=== PATIENT | female | born 1975 | race Caucasian/White ===

== ENCOUNTER 2016-08-25 06:11 | Emergency (ER) | payer BC ==
[~2016-08-25] VITALS: Ht 165.1 cm; Wt 114.3 kg
[2016-08-25 06:24] VITALS: BP 122/73
[2016-08-25] MEDS ORDERED: ABIL1TAB5 PO (06:29)
[2016-08-25] MEDS ORDERED: LEXA1TAB2 PO (06:29)
[2016-08-25] MEDS ORDERED: LISI10TA4 PO (06:29)
[2016-08-25] MEDS ORDERED: OMEP40CA2 PO (06:29)
[2016-08-25] MEDS ORDERED: PANTOPRAZOLE 40MG INJ (PROTONIX) (C9113) IV ONE (07:00)
[2016-08-25] MEDS ORDERED: ONDANSETRON 4MG/2ML VIAL (J2405) IV ONE (07:00)
[2016-08-25] MEDS ORDERED: NS 1,000 ML IV ONE (07:00)
[2016-08-25 07:40] LABS: BASO # 0.1 K/mm3 (0.0-0.2); BASO % 0.8 % (0.0-1.0); EOS # 0.6 K/mm3 (0.0-0.50); EOS % 4.1 % (0.0-3.0); LARGE UNSTAINED CELL # 0.4 K/mm3 (0.0-0.4); LARGE UNSTAINED CELL % 2.8 % (0.0-4.0); LYMPH # 2.5 K/mm3 (1.5-4.5); LYMPH % 18.4 % (24.0-44.0); MEAN CORPUSCULAR HEMOGLOBIN 30.7 pg (27.0-33.0); MEAN CORPUSCULAR HGB CONC 34.4 g/dl (32.0-36.5); MEAN CORPUSCULAR VOLUME 89.1 fl (80.0-96.0); MONO # 0.9 K/mm3 (0.0-0.8); MONO % 6.3 % (0.0-5.0); NEUTROPHILS # 9.3 K/mm3 (1.8-7.7); NEUTROPHILS % 67.6 % (36.0-66.0); PLATELET COUNT, AUTOMATED 410 k/mm3 (150-450); RED CELL DISTRIBUTION WIDTH 13.6 % (11.5-14.5); WHITE BLOOD COUNT 13.7 K/mm3 (4.0-10.0)
[2016-08-25 07:59] LABS: ALBUMIN 3.4 GM/DL (3.2-5.2); ALBUMIN/GLOBULIN RATIO 0.77 (1.00-1.93); ALKALINE PHOSPHATASE 112 U/L (45-117); ALT/SGPT 38 U/L (12-78); ANION GAP 7 MEQ/L (8-16); AST/SGOT 22 U/L (15-37); BILIRUBIN,DIRECT < 0.1 MG/DL (0.0-0.2); BILIRUBIN,TOTAL 0.3 MG/DL (0.2-1.0); BLOOD UREA NITROGEN 12 MG/DL (7-18); CALCIUM LEVEL 8.6 MG/DL (8.5-10.1); CARBON DIOXIDE LEVEL 28 MEQ/L (21-32); CHLORIDE LEVEL 104 MEQ/L (98-107); CREATININE FOR GFR 0.76 MG/DL (0.55-1.02); GLOMERULAR FILTRATION RATE > 60.0 (>60); GLUCOSE, FASTING 93 MG/DL (70-105); POTASSIUM SERUM 4.2 MEQ/L (3.5-5.1); SODIUM LEVEL 139 MEQ/L (136-145); TOTAL PROTEIN 7.8 GM/DL (6.4-8.2)
[2016-08-25] MEDS ORDERED: ISOVUE-370 76% 100ML VIAL (Q9967) As Ordered ONE (09:01)
--- NOTE | 2016-08-25 09:10 | REP ---
RIGHT UPPER QUADRANT ULTRASOUND: Real-time sonographic evaluation of the right upper quadrant performed. No gallstones are seen in the gallbladder. There is no gallbladder wall thickening or pericholecystic fluid. There is no intrahepatic or extrahepatic biliary dilatation, common bile duct measuring 4 mm in diameter. The liver demonstrates somewhat increased echotexture heterogeneous suggesting some degree of fibrofatty infiltration. No gross liver or pancreatic mass is seen. The pancreas is not optimally seen due to overlying bowel gas. The right kidney demonstrates no hydronephrosis or nephrolithiasis with normal size 11.1 cm in length. IMPRESSION: No evidence of gallstones, gallbladder wall thickening, pericholecystic fluid or biliary dilatation. The patient was tender at the site of the gallbladder. Unreviewed
--- NOTE | 2016-08-25 09:50 | REP ---
CT ABDOMEN AND PELVIS WITH CONTRAST: TECHNIQUE: Axial contrast enhanced images from the lung bases to the pubic symphysis using 100 mL Isovue 370 intravenous contrast material with multiplanar reformations. The visualized lung bases are clear. The liver demonstrates no suspicious mass. Spleen is normal in size. There is no intrinsic splenic abnormality. Adrenals and pancreas are normal as are the kidneys. There is no hydronephrosis. There is no abdominal aortic aneurysm. There is no adenopathy, free air or free fluid. There is no bowel wall thickening. There is no evidence of appendicitis. There is no pelvic mass. Urinary bladder appears unremarkable. IMPRESSION: Essentially negative CT abdomen and pelvis with contrast. Signed by Damian Lee MD 08/26/2016 04:39 P
[2016-08-25] MEDS ORDERED: BENT20TA PO (09:53)
[2016-08-25] MEDS ORDERED: BACT800T5 PO (09:53)
== END 2016-08-25 10:07 | disposition home or self-care (01) ==
LOC: M ED 07:34
DX: N39.0 Urinary tract infection, site not specified (principal); R10.9 Unspecified abdominal pain; R11.10 Vomiting, unspecified; R19.7 Diarrhea, unspecified; I10 Essential (primary) hypertension; J45.909 Unspecified asthma, uncomplicated; K58.9 Irritable bowel syndrome, unspecified; F32.9 Major depressive disorder, single episode, unspecified; F41.9 Anxiety disorder, unspecified; Z79.899 Other long term (current) drug therapy
CPT/HCPCS: 74177; 76705; 80048; 80076; 81001; 83690; 85025; 87086; 96374; 96375; 99282; C9113; J2405; Q9967

== ENCOUNTER → 2016-09-02 | Outpatient (CLI) | payer BC ==
[~2016-09-02] MED LIST: ABIL1TAB5 PO; BACT800T5 PO; BENT20TA PO; LEXA1TAB2 PO; LISI10TA4 PO; OMEP40CA2 PO
[2016-09-03 07:26] LABS: FREE T4 0.89 NG/DL (0.76-1.46)
== END ==
LOC: M LAB 09:19
PROVIDERS: ATTEND Internal Medicine Gastroenterology
DX: R19.7 Diarrhea, unspecified (principal)

== ENCOUNTER → 2016-09-06 | Outpatient (CLI) | payer BC ==
[~2016-09-06] MED LIST changes: +E-Z-PAQUE 96% w/w SUSP 176GM BTL As Ordered ONE
--- NOTE | 2016-09-07 08:01 | REP ---
SMALL BOWEL FOLLOW THROUGH: The procedure was performed under the direct supervision of Dr. Lee. The images were reviewed with Dr. Lee. The end user support specialist film shows no organomegaly or pathological masses. The intestinal gas pattern is nonspecific. There are surgical sutures noted in the pelvis. Liquid barium was administered and the barium column was followed through the small bowel to the level of the terminal ileum. Small bowel transit time is approximately 195 minutes. During fluoroscopy, gentle palpation shows all loops are freely movable and pliable. There are no fixed or angulated loops. The small bowel mucosal pattern is normal in course and caliber. There is no transition to suggest a partial small bowel obstruction. Spot filming of the terminal ileum shows it to be unremarkable. IMPRESSION: Small bowel follow through examination within normal limits. 56 seconds of fluoroscopy time was utilized for this procedure. Reviewed by MOISES Huffman 09/08/2016 03:20 PEdited and Signed by Damian Lee MD 09/08/2016 04:48 P
== END ==
LOC: M RAD 08:19
PROVIDERS: ATTEND Internal Medicine Gastroenterology
DX: K58.0 Irritable bowel syndrome with diarrhea (principal)

== ENCOUNTER → 2016-09-10 | Outpatient (CLI) | payer BC ==
[~2016-09-10] MED LIST changes: -E-Z-PAQUE 96% w/w SUSP 176GM BTL As Ordered ONE
--- NOTE | 2016-09-10 11:42 | REP ---
Hepatobiliary scan and gallbladder ejection fraction: History: Abdominal pain. Nausea vomiting and diarrhea. Technique: 6.6 mCi of technetium-99m mebrofenin was injected and sequential anterior images are acquired. 65 minutes after the mebrofenin injection, the patient consumed 8 ounces Ensure and an additional 60 minutes of imaging was acquired. Regions of interest are plotted around the gallbladder. Findings: The initial hepatocellular parenchymal uptake phase is normal and homogeneous. Intra- and extra-hepatic bile ducts and duodenum are labeled by the 10 -minute image. The gallbladder is first labeled on the 10 -minute image. There is normal washout from the liver parenchyma into the gallbladder and small intestine on subsequent images. The gallbladder ejection fraction is 10 %. Values greater than 35 % are considered normal with this technique. Impression: Somewhat delayed biliary to bowel transit time, greater than 60 minutes. This is nonspecific. Otherwise negative hepatobiliary scan and decreased gallbladder ejection fraction. Signed by Melvin Day MD 09/10/2016 11:34 A
== END ==
LOC: M RAD 07:23
PROVIDERS: ATTEND Internal Medicine Gastroenterology
DX: K82.8 Other specified diseases of gallbladder (principal)

== ENCOUNTER → 2016-10-15 | Outpatient (CLI) | payer BC ==
[~2016-10-15] VITALS: Ht 165.1 cm; Wt 113.4 kg
[~2016-10-15] MED LIST changes: +NS 1,000 ML IV ONE; +PROPOFOL 500 MG/50 ML VIAL As Ordered ONE
--- NOTE | 2016-10-15 14:06 | ROOR ---
Patient Name: Sahara Lee Procedure Date: 10/15/2016 1:51 PM Date of : 1975 Age: 41 Room: [facility] Gender: Female Note Status: Finalized Procedure: Upper GI endoscopy Indications: Epigastric abdominal pain, Abdominal pain in the right upper quadrant, Nausea Providers: Janak GREY MD Referring MD: [facility]: Medicines: Monitored Anesthesia Care Complications: No immediate complications. Procedure: Pre-Anesthesia Assessment: - The heart rate, respiratory rate, oxygen saturations, blood pressure, adequacy of pulmonary ventilation, and response to care were monitored throughout the procedure. The Endoscope was introduced through the mouth, and advanced to the second part of duodenum. The upper GI endoscopy was accomplished without difficulty. The patient tolerated the procedure well. Findings: The esophagus was normal. The stomach was normal. The examined duodenum was normal. Impression: - Normal esophagus. - Normal stomach. - Normal examined duodenum. - No specimens collected. Recommendation: - Continue present medications. - Observe patient's clinical course. Janak Grey MD Janak GREY MD 10/15/2016 2:06:00 PM This report has been signed electronically. Number of Addenda: 0 Note Initiated On: 10/15/2016 1:51 PM Estimated Blood Loss: Estimated blood loss: none.
--- NOTE | 2016-10-15 14:21 | ROOR ---
Patient Name: Sahara Lee Procedure Date: 10/15/2016 1:52 PM Date of : 1975 Age: 41 Room: [facility] Gender: Female Note Status: Finalized Procedure: Colonoscopy Indications: Screening in patient at increased risk: Colorectal cancer in father before age 60, (age 55) Providers: Janak GREY MD Referring MD: [facility] Silvestre Rivera [facility] MD Silvestre Requesting Provider: Medicines: Monitored Anesthesia Care Complications: No immediate complications. Procedure: Pre-Anesthesia Assessment: - The heart rate, respiratory rate, oxygen saturations, blood pressure, adequacy of pulmonary ventilation, and response to care were monitored throughout the procedure. The Colonoscope was introduced through the anus and advanced to the terminal ileum, with identification of the appendiceal orifice and IC valve. The colonoscopy was performed without difficulty. The patient tolerated the procedure well. The quality of the bowel preparation was good. Findings: The perianal and digital rectal examinations were normal. (Exam: Complete, Prep: Good or Excellent.) The terminal ileum appeared normal. The entire examined colon appeared normal on direct and retroflexion views. Impression: - Small internal hemorrhoids. - The examined portion of the ileum was normal. - The entire colon is normal on direct and retroflexion views. - No specimens collected. Recommendation: - Repeat colonoscopy in 5 years for screening purposes. Janak Grey MD Janak GREY MD 10/15/2016 2:20:43 PM This report has been signed electronically. Number of Addenda: 0 Note Initiated On: 10/15/2016 1:52 PM Estimated Blood Loss: Estimated blood loss: none.
[2016-10-15 14:50] VITALS: BP 129/73
== END ==
LOC: M OPP 11:57
PROVIDERS: ATTEND Internal Medicine Gastroenterology
DX: Z12.11 Encounter for screening for malignant neoplasm of colon (principal); K64.9 Unspecified hemorrhoids; Z80.0 Family history of malignant neoplasm of digestive organs; R10.13 Epigastric pain; R10.11 Right upper quadrant pain; R11.0 Nausea; I10 Essential (primary) hypertension; K21.9 Gastro-esophageal reflux disease without esophagitis; K58.9 Irritable bowel syndrome, unspecified; Z86.19 Personal history of other infectious and parasitic diseases

== ENCOUNTER → 2017-04-22 | Outpatient (CLI) | payer BC ==
[~2017-04-22] MED LIST changes: +ABIL10TA9 PO; -ABIL1TAB5 PO; -NS 1,000 ML IV ONE; -PROPOFOL 500 MG/50 ML VIAL As Ordered ONE
--- NOTE | 2017-04-27 09:11 | REP ---
MRI LEFT KNEE WITHOUT CONTRAST: HISTORY: Progressive pain after popping sensation. No comparison imaging is available. History of recurrent dislocation of the patella. TECHNIQUE: Axial, coronal and sagittal imaging planes are utilized. T1 and T2-weighted scans were obtained with and without fat saturation. MRI FINDINGS: Cortical and medullary bone signal intensity are normal. There is no visible Poole's cyst. A small amount of joint effusion is seen. There is moderate central patellar chondromalacia with linear partial-thickness fissuring across the central patella articular cartilage. Trochlear articular cartilage appears normal. There is mild chondromalacia in the medial femoral condyle. No medial or lateral meniscal tear is appreciated. Patellar and quadriceps tendons are intact. Anterior posterior cruciate ligaments have an intact appearance. No medial or lateral collateral ligament disruption is seen. The patella is situated slightly high. The Insall-Salvati ratio measures 1.2, this is at the upper range of normal. The articular surface of the patella on axial images is fairly flat and the upper portion of the condylar groove is shallow. No other abnormalities seen. 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 Small joint effusion. The femoral trochlear groove is somewhat shallow. Borderline patella clinton. Signed by Melvin Day MD 04/27/2017 11:38 A
== END ==
LOC: M RAD 15:40
PROVIDERS: ATTEND Orthopaedic Surgery
DX: M22.02 Recurrent dislocation of patella, left knee (principal)

== ENCOUNTER 2018-02-01 13:34 | Outpatient (CLI) | payer BC ==
[2018-02-07 00:06] LABS: GASTRIN 15 pg/mL (0-115)
[2018-02-07 00:06] LABS: CHROMOGRANIN A <1 nmol/L (0-5)
== END 2018-02-02 ==
LOC: M LAB 13:34
DX: K58.2 Mixed irritable bowel syndrome (principal)
CPT/HCPCS: 82941

== ENCOUNTER 2018-09-27 15:45 | Outpatient (RCR) | payer OTHER | END 2018-09-29 | LOC: M PT 15:45 | PROVIDERS: ATTEND Orthopaedic Surgery | DX: M75.101 Unspecified rotator cuff tear or rupture of right shoulder, not specified as traumatic (principal) ==

== ENCOUNTER 2018-10-18 15:31 | Outpatient (RCR) | payer OTHER | END 2018-10-29 | LOC: M PT 15:31 | PROVIDERS: ATTEND Orthopaedic Surgery | DX: M75.101 Unspecified rotator cuff tear or rupture of right shoulder, not specified as traumatic (principal) ==

== ENCOUNTER 2019-02-23 07:20 | Emergency (ER) | payer OTHER ==
[~2019-02-23] VITALS: Ht 167.6 cm; Wt 120.9 kg
[~2019-02-23 07:20] MED LIST changes: -OMEP40CA2 PO; +OMEP40CA97 PO
[2019-02-23 07:44] LABS: BASO # 0.1 10^3/uL (0.0-0.2); BASO % 0.7 % (0.0-1.0); EOS # 0.4 10^3/uL (0.0-0.5); EOS % 3.9 % (0.0-3.0); HEMATOCRIT 39.2 % (36.0-47.0); HEMOGLOBIN 12.9 g/dl (12.0-15.5); LYMPH # 2.6 10^3/uL (1.5-5.0); LYMPH % 24.5 % (24.0-44.0); MEAN CORPUSCULAR HEMOGLOBIN 29.3 pg (27.0-33.0); MEAN CORPUSCULAR HGB CONC 32.9 g/dl (32.0-36.5); MEAN CORPUSCULAR VOLUME 88.9 fl (80.0-96.0); MONO # 1.1 10^3/uL (0.0-0.8); NEUTROPHILS # 6.3 10^3/uL (1.5-8.5); NEUTROPHILS % 60.3 % (36.0-66.0); PLATELET COUNT, AUTOMATED 413 10^3/uL (150-450); RED BLOOD COUNT 4.41 10^6/uL (4.00-5.40); WHITE BLOOD COUNT 10.5 10^3/uL (4.0-10.0)
[2019-02-23] MEDS ORDERED: LOSA50TA88 PO (07:47)
[2019-02-23 08:08] LABS: HCG, SERUM QUALITATIVE NEGATIVE (NEGATIVE)
[2019-02-23 08:28] LABS: ALBUMIN 3.4 GM/DL (3.2-5.2); ALT/SGPT 43 U/L (12-78); BILIRUBIN,DIRECT < 0.1 MG/DL (0.0-0.2); BILIRUBIN,TOTAL 0.4 MG/DL (0.2-1.0); BLOOD UREA NITROGEN 9 MG/DL (7-18); CALCIUM LEVEL 9.1 MG/DL (8.5-10.1); CARBON DIOXIDE LEVEL 26 MEQ/L (21-32); CHLORIDE LEVEL 106 MEQ/L (98-107); CK-MB VALUE MASS 1.1 NG/ML (<3.6); CPK CREATINE PHOSPHOKINASE 84 U/L (26-192); GLOMERULAR FILTRATION RATE > 60.0 (>58); GLUCOSE, FASTING 100 MG/DL (70-100); LIPASE 132 U/L (73-393); MB/CK RELATIVE INDEX 1.31 (< OR =4); POTASSIUM SERUM 4.1 MEQ/L (3.5-5.1); SODIUM LEVEL 140 MEQ/L (136-145); TROPONIN I < 0.02 NG/ML (< 0.10)
[2019-02-23] MEDS ORDERED: ISOVUE-370 76% 100ML VIAL (Q9967) As Ordered ONE (08:38)
--- NOTE | 2019-02-23 09:36 | REP ---
CHEST: Single view. There is no evidence of acute infiltrate. No pleural effusion is seen. The heart is normal in size. The mediastinal silhouette is unremarkable. The visualized osseous structures are intact. IMPRESSION: No acute pulmonary disease. Electronically Signed by Damian Lee MD 02/24/2019 11:02 A
--- NOTE | 2019-02-23 09:38 | REP ---
CT ANGIOGRAM CHEST: TECHNIQUE: Axial contrast enhanced images from the thoracic inlet to the upper abdomen using 100 mL Isovue 370 intravenous contrast material with multiplanar reformations. There is no CT evidence of pulmonary embolism. There is no thoracic aortic aneurysm or dissection. The heart if normal in size. There is no pleural or pericardial effusion. There is no mediastinal, hilar, or chest wall lymphadenopathy. There is diffuse fatty infiltration of the liver. The patient has had a prior cholecystectomy. There are degenerative changes of the spine. There are dependent atelectatic changes in both lungs. IMPRESSION: No evidence of pulmonary embolism or aortic dissection. Electronically Signed by Damian Lee MD 02/24/2019 11:02 A
[2019-02-23 11:46] VITALS: BP 121/75
[2019-02-23 14:52] LABS: CK-MB VALUE MASS < 1.0 NG/ML (<3.6); CPK CREATINE PHOSPHOKINASE 69 U/L (26-192); MB/CK RELATIVE INDEX 1.45 (< OR =4); TROPONIN I < 0.02 NG/ML (< 0.10)
--- NOTE | 2019-02-23 21:27 | ECGEPIP ---
[facility] - ED Test Date: 2019-02-23 Pat Name: LEONIE PEACOCK Department: Room: - Gender: Female Finger Waver: : 1975 Requested By: Ghada Nichols Order Number: [id number] Reading MD: Ghada Nichols Measurements Intervals [place] Rate: 96 P: 16 MN: 148 QRS: 20 QRSD: 87 T: 23 QT: 360 QTc: 457 Interpretive Statements SINUS RHYTHM NO PRIOR Electronically Signed on 02-23-2019 21:26:46 EDT by Ghada Nichols
--- NOTE | 2019-02-23 21:32 | ECGEPIP ---
[facility] - ED Test Date: 2019-02-23 Pat Name: LEONIE PEACOCK Department: Room: - Gender: Female Acid Splicer: : 1975 Requested By: Ghada Nichols Order Number: [id number] Reading MD: Ghada Nichols Measurements Intervals [place] Rate: 91 P: 15 NE: 160 QRS: 12 QRSD: 93 T: 18 QT: 363 QTc: 448 Interpretive Statements SINUS RHYTHM SIMILAR 02/23/19 Electronically Signed on 02-23-2019 21:31:57 EDT by Ghada Nichols
== END 2019-02-23 15:30 | disposition home or self-care (01) ==
LOC: M ED 07:20
DX: R07.9 Chest pain, unspecified (principal); R53.83 Other fatigue; K58.9 Irritable bowel syndrome, unspecified; Z79.899 Other long term (current) drug therapy
CPT/HCPCS: 36415; 71045; 71275; 80048; 80076; 82550; 82553; 83690; 84484; 84703; 85025; 93005; 93041; 94760; 99285; Q9967

== ENCOUNTER → 2019-09-12 | Outpatient (CLI) | payer OTHER ==
[~2019-09-12] MED LIST changes: +LOSA50TA88 PO
--- NOTE | 2019-09-13 03:48 | REP ---
Clinical: Right thyroid nodule. Technique: Real time syed scale and color evaluation using linear high frequency and curved array transducers. Findings: Thyroid gland is normal in contour and size with heterogeneous parenchymal echotexture including scattered solid and cystic changes. Isthmus measures 3.6 mm in width. Right lobe measures 5.0 x 1.6 x 1.3 cm and includes multiple small hypoechoic presumed cysts/nonspecific hypoechoic nodules measuring average approximately 4 mm diameter along with solid hypoechoic lower pole homogeneous nodule measuring 1.1 x 0.5 x 1.0 cm. Left lobe measures 3.7 x 1.8 x 1.1 cm and again includes multiple small hypoechoic presumed cyst / nonspecific hypoechoic nodules measuring average 3 mm diameter. Impression: 1. Nonspecific small hypoechoic cyst/nodules noted bilaterally. 2. Homogeneous hypoechoic solid nodule in the lower pole right lobe is of indeterminate characteristic by ultrasound evaluation. Electronically Signed by Go Neves MD 09/13/2019 03:39 A
== END ==
LOC: M LRY 13:38
PROVIDERS: ATTEND Otolaryngology
DX: E04.1 Nontoxic single thyroid nodule (principal)

== ENCOUNTER → 2019-10-03 | Outpatient (CLI) | payer OTHER ==
[~2019-10-03] MED LIST changes: +LIDOCAINE 1% MDV 20ML VIAL As Ordered ONE
[2019-10-03 13:15] VITALS: BP 166/92
--- NOTE | 2019-10-04 03:14 | REP ---
Clinical: Plantar biopsy. Technique: Real time syed scale and color ultrasound examination using linear high frequency and curved array transducers. Findings: The thyroid gland is diffusely heterogeneous and demonstrates multiple small primarily subcentimeter hypoechoic nodules largest of which is noted in the right lower pole measuring 10 x 6 x 10 mm. Right lobe measures 4.4 x 2.3 x 1.5 cm. Left lobe measures 3.5 x 1.8 x 1.6 cm. Impression: Heterogeneous thyroid gland with scattered nonspecific subcentimeter hypoechoic nodules. Largest nodule identified in the right lower pole measuring 10 mm diameter. Electronically Signed by Go Neves MD 10/04/2019 03:04 A
--- NOTE | 2019-10-04 19:08 | REP ---
ULTRASOUND-GUIDED RIGHT THYROID AND RIGHT CERVICAL LYMPH NODE BIOPSY The procedure was performed under the direct supervision of Dr. Lee. The patient has a history of a 1.1 x 0.5 x 1.0 cm solid hypoechoic lower pole thyroid nodule seen on a previous ultrasound dated 09/12/2019 as well as a 1.8-cm enlarged lymph node at the anterior margin of the right sternocleidomastoid muscle seen on a previous CT scan from [facility] dated 09/05/2019. The risks and benefits of the procedure were explained to the patient and informed consent was obtained. The right thyroid nodule and right cervical lymph node were localized using ultrasound guidance. The skin was prepped and draped in a sterile fashion. The right thyroid nodule was addressed first. 1% lidocaine was used as a local anesthetic. Using ultrasound guidance four fine-needle aspirations were obtained using 25 gauge needles. The right cervical lymph node was then addressed. 1% lidocaine was used as a local anesthetic. Using ultrasound guidance eight fine-needle aspirations were obtained using 25 gauge needles. The patient tolerated the procedure well and there were no immediate complications. After the appropriate amount of monitored convalescence the patient was discharged from the department. Electronically Signed by MOISES Huffman 10/03/2019 03:16 P Electronically Signed by Damian Lee MD 10/04/2019 06:59 P
== END ==
LOC: M IRPRO 11:58
PROVIDERS: ATTEND Otolaryngology
DX: R59.0 Localized enlarged lymph nodes (principal); E04.1 Nontoxic single thyroid nodule

== ENCOUNTER → 2019-11-14 | Outpatient (CLI) | payer OTHER ==
[~2019-11-14] MED LIST changes: +LOSA100T5 PO; +SODIUM BICARBONATE 8.4% INJ 50MEQ 50 ML VIAL As Ordered ONE
[2019-11-14 12:39] VITALS: BP 179/90
--- NOTE | 2019-11-14 16:50 | REP ---
Ultrasound-guided right thyroid biopsy This procedure was performed by MOISES Rene, under the direct supervision of Dr. Lee. The patient has a history of a 1.1 x 0.5 x 1.0 cm solid hypo echoic lower pole thyroid nodule on an ultrasound dated 09/12/2019. The risks and the benefits of the procedure were explained to the patient and informed consent was obtained both verbally and written. Directly prior to the start of the procedure, a formal time out was completed in the procedure room. The right thyroid nodule was localized using ultrasound guidance. The skin was prepped and draped in a sterile fashion. 4 ml of buffered lidocaine was used as a local anesthetic. Using ultrasound guidance 6 fine-needle aspirations were obtained using 25 gauge needles of the right thyroid nodule thyroid nodule. Because this was the patient's second biopsy, pathology was in the room as the samples were taken. A few follicular cells were seen on the pathology slides, and cytology results will be back in a few days. The patient tolerated the procedure well and there were no immediate complications. After the appropriate amount of monitored convalescence the patient was discharged from the department. Reviewed by MOISES Rene 11/14/2019 01:48 P Electronically Signed by Damian Lee MD 11/14/2019 04:41 P
== END ==
LOC: M IRPRO 11:03
PROVIDERS: ATTEND Physician Assistant Medical
DX: E04.1 Nontoxic single thyroid nodule (principal)

== ENCOUNTER → 2020-05-13 | Outpatient (CLI) | payer OTHER ==
[~2020-05-13] MED LIST changes: -LIDOCAINE 1% MDV 20ML VIAL As Ordered ONE; -SODIUM BICARBONATE 8.4% INJ 50MEQ 50 ML VIAL As Ordered ONE
--- NOTE | 2020-05-13 11:07 | REP ---
INDICATION: THYROID NODULE COMPARISON: 10/03/2019 TECHNIQUE: Lee scale and color evaluation of the thyroid gland using the linear high frequency transducer. FINDINGS: Thyroid gland is relatively normal in contour and parenchymal echotexture. Right lobe measures 4.8 x 2.2 x 1.5 cm. Left lobe measures 5.0 x 1.6 x 1.5 cm. Multiple bilateral homogeneous hypoechoic nodules are identified. The largest of which are noted in the right lobe and measures 5 x 3 x 5 mm upper pole and 7 x 6 x 8 mm lower pole. IMPRESSION: Multiple bilateral hypoechoic thyroid nodules essentially unchanged from prior examination. <Electronically signed by Go Neves > 05/13/20 1100
== END ==
LOC: M RAD 10:26
PROVIDERS: ATTEND Physician Assistant Medical
DX: E04.1 Nontoxic single thyroid nodule (principal)

== ENCOUNTER → 2020-05-16 | Outpatient (REF) | payer SELFPAY ==
[~2020-05-16] MED LIST changes: +LISI10TA22 PO; -LISI10TA4 PO
== END ==
LOC: M LABSMTC 09:59 → EDSTATUS 12:35 → M LABSMTC 12:41
PROVIDERS: ATTEND Pediatrics
DX: Z20.822 Contact with and (suspected) exposure to COVID-19 (principal)

== ENCOUNTER → 2020-07-12 | Outpatient (CLI) | payer OTHER ==
--- NOTE | 2020-07-14 17:33 | SLEEPCENT ---
NOCTURNAL POLYSOMNOGRAPHY DATE: 07/12/2020 ORDERED BY: ADRIANNE Reyez Nocturnal polysomnography was performed for the titration of pressure therapy in this patient with severe obstructive sleep apnea syndrome with apnea-hypopnea index of 145.2. For testing, the patient was fit with a ResMed F30 full face mask of medium size was used, 14 cm of water pressure was initially applied to the circuit, and the lights were extinguished. 8 hours and 32 minutes of data were reviewed. There were 412.5 minutes of sleep identified. Sleep latency was normal at 13.5 minutes. REM latency was short at 29.5 minutes. Sleep architecture was fair with some fragmentation persisting. Overall sleep efficiency was 81.8%. The electrocardiogram showed a sinus rhythm with an average heart rate of 80 beats per minute. EEG showed normal waveforms for wake and sleep. Respiratory events prompted increases in CPAP pressure and despite optimal mask fit and a minimal air leak, the patient was changed to a BiLevel device. Optimal sleep was seen on a BiLevel pressure of inspiratory 25/expiratory of 21 with which, the patient maintained saturations of 90% plus. IMPRESSION: Obstructive sleep apnea syndrome (G47.33). RECOMMENDATION: Nightly use of pressure therapy via BiLevel device inspiratory 25/expiratory 21.
== END ==
LOC: M SLEEP 20:00
PROVIDERS: ATTEND Nurse Practitioner Family
DX: G47.33 Obstructive sleep apnea (adult) (pediatric) (principal)

== ENCOUNTER → 2020-10-29 | Outpatient (CLI) | payer OTHER ==
[~2020-10-29] MED LIST changes: +OMEP40CA4 PO; -OMEP40CA97 PO
--- NOTE | 2020-10-29 13:47 | REP ---
INDICATION: NON TOXIC MULTI NODULAR GOITOR. COMPARISON: Comparison thyroid sonography is from 13 May 2020.. TECHNIQUE: High-resolution bilateral thyroid sonography. FINDINGS: On today's sonography the thyroid isthmus is 0.4 cm thick. Right lobe dimensions are 4.7 x 2.0 x 1.2 cm. Left lobe measures 4.4 x 1.6 x 1.2 cm. These measurements are similar to the prior study. There are multiple hypoechoic small nodules in the right lobe essentially unchanged from the prior study. These range in size up to 0.8 cm in greatest diameter. There are 6 separately identifiable nodules in the right lobe. The left lobe contains a cyst measuring 0.2 cm in diameter. No other nodule. IMPRESSION: Multiple right lobe thyroid nodules essentially unchanged from comparison thyroid sonography. <Electronically signed by Masood Day > 10/29/20 [id number]
== END ==
LOC: M RAD 12:49
PROVIDERS: ATTEND Physician Assistant Medical
DX: E04.2 Nontoxic multinodular goiter (principal)

== ENCOUNTER → 2022-01-01 | Outpatient (CLI) | payer OTHER ==
[~2022-01-01] MED LIST changes: +LOSA50TA28 PO; -LOSA50TA88 PO
== END ==
LOC: M SLEEP 20:00
PROVIDERS: ATTEND Nurse Practitioner Family
DX: G47.33 Obstructive sleep apnea (adult) (pediatric) (principal)

== ENCOUNTER → 2022-07-02 | Outpatient (CLI) | payer OTHER | LOC: M WHC 11:55 | PROVIDERS: ATTEND Otolaryngology | DX: E04.2 Nontoxic multinodular goiter (principal) ==

== ENCOUNTER → 2022-09-16 | Outpatient (CLI) | payer OTHER ==
[2022-09-16 12:02] LABS: FREE T4 1.09 NG/DL (0.89-1.76); THYROID STIMULATING HORMONE 1.427 uIU/ML (0.55-4.78)
== END ==
LOC: M LAB 10:22
PROVIDERS: ATTEND Physician Assistant Medical
DX: E04.2 Nontoxic multinodular goiter (principal)

== ENCOUNTER → 2024-12-20 | Outpatient (REF) | payer BC, MEDICARE ==
[2024-12-20 18:10] LABS: C REACTIVE PROTEIN QUANTITATIV 1.33 MG/DL (<1.0)
[2024-12-20 18:12] LABS: TOTAL 25(OH) VITAMIN D 24.9 NG/ML (20.0-100.0)
== END ==
LOC: M SFHCRHEU 15:13
PROVIDERS: ATTEND Internal Medicine
DX: R79.82 Elevated C-reactive protein (CRP) (principal); R70.0 Elevated erythrocyte sedimentation rate; M54.9 Dorsalgia, unspecified; R53.83 Other fatigue